=== PATIENT | female | born 1935 | race Caucasian/White ===

== ENCOUNTER 2019-05-01 04:37 | Emergency (ER) | payer OTHER ==
[2019-05-01] MEDS ORDERED: ALBUTEROL 2.5 MG/3 ML NEB SOL ONE (05:31)
[2019-05-01] MEDS ORDERED: IPRATROPIUM BROM 0.5MG/2.5ML ONE (05:31)
[2019-05-01] MEDS ORDERED: ACETAMINOPHEN 500 MG TAB ONE (05:31)
--- NOTE | 2019-05-01 06:49 | ER ---
Nurse's Notes [facility] Name: Ritika Madrigal Age: 83 yrs Sex: Female : 1935 Arrival Date: 05/01/2019 Time: 04:58 Bed 8 Private MD: Diagnosis: left metacapal base fracture;cough Presentation: 05/01 05:09 Presenting complaint: EMS states: they were called by [place] staff stating that they had aa1 received a radiology report that indicated pt had a fx to her L ring finger. Reports pt sustained the injury while being transferred from her chair to the bed 3 days prior. Minor bruising noted to L ring finger. CMS intact. Transition of care: patient was received from another setting of care (long-term care facility), [facility]. Onset of symptoms was April 27, 2019. Risk Assessment: Do you want to hurt yourself or someone else? Patient reports no desire to harm self or others. Initial Sepsis Screen: Does the patient meet any 2 criteria? No. Patient's initial sepsis screen is negative. Does the patient have a suspected source of infection? No. Patient's initial sepsis screen is negative. Care prior to arrival: None. 05:09 Method Of Arrival: EMS: [facility] aa1 05:09 Acuity: SOURAV 4 aa1 Historical: - Allergies: 05:54 Iodine; aa1 05:54 Bactrim; aa1 - Home Meds: 05:54 albuterol sulfate 0.63 mg/3 mL Inhl nebu every 6 hours [Active]; Aricept 5 mg Oral tab aa1 1 tab once daily [Active]; aspirin 81 mg Oral TbEC 1 tab once daily [Active]; baclofen 10 mg Oral tab 0.5 tabs twice a day [Active]; Breo Ellipta 100-25 mcg/dose inhalation dsdv 1 puff once daily [Active]; chlorthalidone 25 mg Oral tab 0.5 tab once daily [Active]; Flonase 50 mcg/actuation Nasal spsn 2 sprays 2 times per day [Active]; Lamisil AT 1 % topical crea 2 times per day [Active]; levothyroxine 175 mcg tab 1 tab once daily [Active]; Lexapro 10 mg Oral tab 1 tab once daily [Active]; loratadine 10 mg oral tab 1 tab once daily [Active]; Namenda 10 mg oral tab 1 tab 2 times per day [Active]; Neurontin 100 mg Oral cap nightly [Active]; [place] 10-325 mg Oral tab three times a day [Active]; prednisone 20 mg Oral tab 1 tab 2 times per day [Active]; Questran 4 gram Oral pwpk 1 packet 2 times per day [Active]; Remeron 15 mg Oral tab 1 tab once daily [Active]; cholecalciferol (vitamin D3) 2,000 unit oral tab daily [Active]; - PMHx: 05:54 Pneumonia; Chronic pain; Dementia; aa1 05:56 chronic bronchitis; Anemia; Renal Disease; Depression; neuropathy; Osteoporosis; COPD; aa1 Hypothyroidism; Hypertension; Anxiety; - Immunization history:: Flu vaccine is up to date. - Social history:: Smoking status: Patient/guardian denies using tobacco. - Ebola Screening: : No symptoms or risks identified at this time. - History obtained from: [place] records. Screenin:15 Abuse screen: Denies threats or abuse. Denies injuries from another. Nutritional aa1 screening: No deficits noted. Tuberculosis screening: No symptoms or risk factors identified. Fall Risk None identified. Assessment: 05:15 General: Appears in no apparent distress. comfortable, Behavior is calm, cooperative, aa1 appropriate for age. Pain: Complains of pain in left ring finger Pain currently is 0 out of 10 on a pain scale. at worst was 6 out of 10 on a pain scale. Pain began 2-3 days ago. Is intermittent. Neuro: Level of Consciousness is awake, alert, obeys commands, Oriented to person, place, situation, Moves all extremities. Respiratory: Airway is patent Respiratory effort is even, unlabored, Respiratory pattern is regular, symmetrical. GI: No signs and/or symptoms were reported involving the gastrointestinal system. : No signs and/or symptoms were reported regarding the genitourinary system. EENT: No signs and/or symptoms were reported regarding the EENT system. Derm: Skin is intact, is healthy with good turgor, is thin, Skin is pink, warm \T\ dry. Musculoskeletal: Circulation, motion, and sensation intact. Capillary refill < 3 seconds. 06:08 Reassessment: Patient appears in no apparent distress at this time. No changes from aa1 previously documented assessment. Patient and/or family updated on plan of care and expected duration. Pain level reassessed. Awaiting test results. 07:22 Reassessment: Patient appears in no apparent distress at this time. Patient and/or ph family updated on plan of care and expected duration. Pain level reassessed. Report called to nurse at [facility], nurse states that they will send transport for pt. 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 09:38 Reassessment: Patient appears in no apparent distress at this time. Patient and/or ph family updated on plan of care and expected duration. Pain level reassessed. Patient is alert, oriented x 3, equal unlabored respirations, skin warm/dry/pink. Pt cleaned of incontinence and placed in clean brief, snf staff at bedside, pt assisted into wheelchair and d/c to snf. Vital Signs: 05:09 BP 158 / 76; Pulse 76; Resp 18; Temp 98.4; Pulse Ox 97% on R/A; Weight 90.72 kg (R); aa1 Height 5 ft. 6 in. (167.64 cm) (R); Pain 0/10; 06:08 BP 180 / 75; Pulse 88; Resp 24; Pulse Ox 95% on R/A; Pain 0/10; aa1 07:24 BP 163 / 72; Pulse 84; Resp 18; Temp 97.8; Pulse Ox 97% on R/A; ph 08:30 BP 167 / 70; Pulse 86; Resp 18; Pulse Ox 96% on R/A; ph 05:09 Body Mass Index 32.28 (90.72 kg, 167.64 cm) aa1 ED Course: 04:58 Patient arrived in ED. ds1 05:01 Luis Dewey MD is Attending Physician. wa 05:07 Azeb Sandoval, SOHAM is Primary Nurse. aa1 05:09 Arm band placed on right wrist. Patient placed in an exam room, on a stretcher. aa1 05:13 Triage completed. aa1 05:15 Patient has correct armband on for positive identification. Bed in low position. Call aa1 light in reach. Side rails up X2. Pulse ox on. NIBP on. Warm blanket given. 05:38 Flu Sent. aa1 06:46 Christo Chicas MD is Referral Physician. wa 07:05 Orthoglass splint: Ulnar gutter/Boxer splint applied on left forearm. oe 07:14 Sling applied to left arm. oe 07:29 No provider procedures requiring assistance completed. Patient did not have IV access ph during this emergency room visit. Administered Medications: 05:38 Drug: Albuterol - atroVENT (3:1) (2.5 mg - 0.5 mg) 3 ml Route: Nebulizer; aa1 07:29 Follow up: Response: No adverse reaction ph 05:38 CANCELLED (Other Intervention Used): Tylenol Liquid 10 mg/kg PO once; not to exceed aa1 1,000 milligrams 05:38 Drug: Tylenol 1000 mg Route: PO; aa1 07:29 Follow up: Response: No adverse reaction ph Outcome: 06:48 Discharge ordered by . wa 09:15 Discharged to snf. ph 09:15 Condition: good 09:15 Discharge instructions given to snf, Instructed on follow up and referral plans. medication usage, Demonstrated understanding of instructions, follow-up care, medications, Prescriptions given X 1. 09:39 Patient left the ED. ph Signatures: Azeb Sandoval RN RN aa1 Kat Camargo ds1 Zena Carranza RN RN Faizan Andrew William, MD MD pr Corrections: (The following items were deleted from the chart) 05:20 05:09 Presenting complaint: EMS states: they were called by [place] staff stating that they aa1 had received a radiology report that indicated pt had a fx to her L middle finger. Reports pt sustained the injury while being transferred from her chair to the bed 3 days prior. Minor bruising noted to L middle finger. CMS intact aa1
--- NOTE | 2019-05-01 06:49 | EDPHYS ---
Physician Documentation [facility] Name: Ritika Madrigal Age: 83 yrs Sex: Female : 1935 Arrival Date: 05/01/2019 Time: 04:58 Bed 8 Private MD: ED Physician Luis Dewey HPI: 05/01 06:38 This 83 yrs old Female presents to ER via EMS with complaints of left mid wa finget injury. 06:38 The patient or guardian reports injury, pain, swelling, tenderness. The complaints wa affect the MCP of left middle finger. Context: The problem was sustained at a long-term or assisted living facility, resulted from finger got caught into wheelchair during transfer. Onset: The symptoms/episode began/occurred 2 day(s) ago. Modifying factors: The symptoms are alleviated by nothing, the symptoms are aggravated by movement, touch. Associated signs and symptoms: Pertinent negatives: cyanosis distally, decreased sensation distally, fever, nausea, numbness distally. Severity of symptoms: At their worst the symptoms were moderate, in the emergency department the symptoms are unchanged. 06:51 The patient has not experienced similar symptoms in the past. The patient has not wa recently seen a physician. Historical: - Allergies: 05:54 Iodine; aa1 05:54 Bactrim; aa1 - Home Meds: 05:54 albuterol sulfate 0.63 mg/3 mL Inhl nebu every 6 hours [Active]; Aricept 5 mg Oral tab aa1 1 tab once daily [Active]; aspirin 81 mg Oral TbEC 1 tab once daily [Active]; baclofen 10 mg Oral tab 0.5 tabs twice a day [Active]; Breo Ellipta 100-25 mcg/dose inhalation dsdv 1 puff once daily [Active]; chlorthalidone 25 mg Oral tab 0.5 tab once daily [Active]; Flonase 50 mcg/actuation Nasal spsn 2 sprays 2 times per day [Active]; Lamisil AT 1 % topical crea 2 times per day [Active]; levothyroxine 175 mcg tab 1 tab once daily [Active]; Lexapro 10 mg Oral tab 1 tab once daily [Active]; loratadine 10 mg oral tab 1 tab once daily [Active]; Namenda 10 mg oral tab 1 tab 2 times per day [Active]; Neurontin 100 mg Oral cap nightly [Active]; [place] 10-325 mg Oral tab three times a day [Active]; prednisone 20 mg Oral tab 1 tab 2 times per day [Active]; Questran 4 gram Oral pwpk 1 packet 2 times per day [Active]; Remeron 15 mg Oral tab 1 tab once daily [Active]; cholecalciferol (vitamin D3) 2,000 unit oral tab daily [Active]; - PMHx: 05:54 Pneumonia; Chronic pain; Dementia; aa1 05:56 chronic bronchitis; Anemia; Renal Disease; Depression; neuropathy; Osteoporosis; COPD; aa1 Hypothyroidism; Hypertension; Anxiety; - Immunization history:: Flu vaccine is up to date. - Social history:: Smoking status: Patient/guardian denies using tobacco. - Ebola Screening: : No symptoms or risks identified at this time. - History obtained from: [place] records. ROS: 06:41 Constitutional: Negative for fever, chills, and weight loss, Eyes: Negative for injury, wa pain, redness, and discharge, ENT: Negative for injury, pain, and discharge, Neck: Negative for injury, pain, and swelling, Cardiovascular: Negative for chest pain, palpitations, and edema, Abdomen/GI: Negative for abdominal pain, nausea, vomiting, diarrhea, and constipation, Back: Negative for injury and pain, : Negative for injury, bleeding, discharge, and swelling, Skin: Negative for injury, rash, and discoloration, Neuro: Negative for headache, weakness, numbness, tingling, and seizure, Psych: Negative for depression, anxiety, suicide ideation, homicidal ideation, and hallucinations. 06:41 Respiratory: Positive for cough. 06:41 MS/extremity: Positive for ecchymosis, pain, swelling, tenderness, of the left hand and MCP of left middle finger. 06:41 All other systems are negative. Exam: 06:42 Constitutional: This is a well developed, well nourished patient who is awake, alert, wa and in no acute distress. Head/Face: Normocephalic, atraumatic. Eyes: Pupils equal round and reactive to light, extra-ocular motions intact. Lids and lashes normal. Conjunctiva and sclera are non-icteric and not injected. Cornea within normal limits. Periorbital areas with no swelling, redness, or edema. ENT: Nares patent. No nasal discharge, no septal abnormalities noted. Tympanic membranes are normal and external auditory canals are clear. Oropharynx with no redness, swelling, or masses, exudates, or evidence of obstruction, uvula midline. Mucous membranes moist. Neck: Trachea midline, no thyromegaly or masses palpated, and no cervical lymphadenopathy. Supple, full range of motion without nuchal rigidity, or vertebral point tenderness. No Meningismus. Chest/axilla: Normal chest wall appearance and motion. Nontender with no deformity. No lesions are appreciated. Cardiovascular: Regular rate and rhythm with a normal S1 and S2. No gallops, murmurs, or rubs. Normal PMI, no JVD. No pulse deficits. Abdomen/GI: Soft, non-tender, with normal bowel sounds. No distension or tympany. No guarding or rebound. No evidence of tenderness throughout. Back: No spinal tenderness. No costovertebral tenderness. Full range of motion. Neuro: Awake and alert, GCS 15, oriented to person, place, time, and situation. Cranial nerves II-XII grossly intact. Motor strength 5/5 in all extremities. Sensory grossly intact. Cerebellar exam normal. Normal gait. Psych: Awake, alert, with orientation to person, place and time. Behavior, mood, and affect are within normal limits. 06:42 Respiratory: the patient does not display signs of respiratory distress, Respirations: normal, Breath sounds: coarse bilaterally. 06:42 Musculoskeletal/extremity: Extremities: grossly normal except: noted in the MCP of left middle finger: pain, swelling, tenderness, erythema, pain, swelling. 06:42 Skin: injury, contusion(s), of the MCP of left middle finger. Vital Signs: 05:09 BP 158 / 76; Pulse 76; Resp 18; Temp 98.4; Pulse Ox 97% on R/A; Weight 90.72 kg (R); aa1 Height 5 ft. 6 in. (167.64 cm) (R); Pain 0/10; 06:08 BP 180 / 75; Pulse 88; Resp 24; Pulse Ox 95% on R/A; Pain 0/10; aa1 07:24 BP 163 / 72; Pulse 84; Resp 18; Temp 97.8; Pulse Ox 97% on R/A; ph 08:30 BP 167 / 70; Pulse 86; Resp 18; Pulse Ox 96% on R/A; ph 05:09 Body Mass Index 32.28 (90.72 kg, 167.64 cm) aa1 Procedures: 06:45 Splinting: Splint applied to left hand using Orthoglass splint, applied by nurse. wa Examined by me, post splint application: neurovascular intact, Patient tolerated well. MDM: 05:01 Patient medically screened. ks 06:43 Differential diagnosis: dislocation, closed fracture, contusion. Data reviewed: vital wa signs, nurses notes, radiologic studies. Test interpretation: by ED physician or midlevel provider: L hand x-ray: metacarpal base fracture L hand. Response to treatment: the patient's symptoms have markedly improved after treatment. 05/01 05:20 Order name: Flu ks 05/01 06:12 Order name: Influenza Screen (A ; Complete Time: 06:30 [facility] 05/01 05:17 Order name: Hand Left 3 View XRAY ks 05/01 05:20 Order name: Chest Pa And Lat (2 Views) XRAY ks 05/01 09:26 Order name: RAD [facility] 05/01 09:39 Order name: RAD [facility] 05/01 06:32 Order name: Splint: L hand; Complete Time: 07:29 ks 05/01 07:29 Order name: Diet Mech. Soft (ground); Complete Time: 07:31 ph Administered Medications: 05:38 Drug: Albuterol - atroVENT (3:1) (2.5 mg - 0.5 mg) 3 ml Route: Nebulizer; aa1 07:29 Follow up: Response: No adverse reaction ph 05:38 CANCELLED (Other Intervention Used): Tylenol Liquid 10 mg/kg PO once; not to exceed aa1 1,000 milligrams 05:38 Drug: Tylenol 1000 mg Route: PO; aa1 07:29 Follow up: Response: No adverse reaction ph Disposition: 05/01/19 06:48 Discharged to Home. Impression: left metacapal base fracture, cough. - Condition is Stable. - Discharge Instructions: Finger Fracture, [id number], Cough, Adult, [id number]. - Prescriptions for Albuterol Sulfate 2.5 mg /3 mL (0.083 %) Inhalation Solution for Nebulization - inhale 1 unit by NEBULIZATION route every 8 hours As needed; 1 box. - Medication Reconciliation Form, Thank You Letter, Antibiotic Education, Prescription Opioid Use form. - Follow up: Christo Chicas MD; When: 2 - 3 days; Reason: Recheck today's complaints. - Problem is new. - Symptoms have improved. - Notes: take tylenol for pain. follow up with the bone doctor for further assessent Signatures: Dispatcher [employer] EDAzeb Jacobs RN RN aa1 Zena Carranza RN RN [facility] Hospital[facility] MD MD ks Corrections: (The following items were deleted from the chart) 05:38 05:21 Tylenol Liquid 10 mg/kg PO once; not to exceed 1,000 milligrams ordered. ks aa1 09:39 06:48 05/01/2019 06:48 Discharged to Home. Impression: left metacapal base fracture; ph cough. Condition is Stable. Forms are Medication Reconciliation Form, Thank You Letter, Antibiotic Education, Prescription Opioid Use. Follow up: Christo Chicas; When: 2 - 3 days; Reason: Recheck today's complaints. Problem is new. Symptoms have improved. [place]
--- NOTE | 2019-05-01 09:19 | RAD REPORT ---
EXAM DESCRIPTION: RAD - Chest Single View - 05/01/2019 5:58 am CLINICAL HISTORY: Cough, shortness of breath COMPARISON: February 2014 TECHNIQUE: AP portable chest image was obtained 0545 hour . FINDINGS: Is lung volumes are low particularly on the right side. Patient has a baseline interstitia l fibrotic pattern that is accentuated by the poor inspiratory effort. This could mask early intersti tial edema or infiltrate. No focal consolidations seen. Heart size is normal. No vascular engorgement seen. Right hilar fullness is believed to be the affects of shallow inspiration. This can be further evaluated when the patient can tolerate a two-view examination. No measurable pleural effusion and no pneumothorax. No acute bone finding identifiable. Prominent de generative changes are present at the left shoulder joint. There is probable joint laxity or partial dislocation of the humeral head. This is unchanged from the 2014 exam. No acute aortic findings suspe cted. IMPRESSION: Chronic interstitial fibrotic pattern accentuated by shallow inspiration. This could mas k early interstitial edema or infiltrate. Fullness of the right hilum is believed to be artifact of shallow inspiration. This can be re-evaluat ed when the patient can tolerate standard two view examination.
--- NOTE | 2019-05-01 09:22 | RAD REPORT ---
EXAM DESCRIPTION: RAD - Hand Left 3 View - 05/01/2019 5:50 am CLINICAL HISTORY: Hand pain, bruising COMPARISON: None. FINDINGS: Nondisplaced, nonangulated fracture involves the base of the third proximal phalanx. Fract ure line is at the base of the shaft. Articular surface of the third proximal phalanx is intact. No p athologic component. No other acute fracture changes confirmed. Bones are osteopenic. IP joint space narrowing is present. Carpal - metacarpal articulation show degenerative change. Positioning is not optimal. Metacarpal di slocation is not suspected. Trapezial first metacarpal prominent degenerative changes are noted. Radi ocarpal joint space narrowing seen. No foreign body or other soft tissue abnormality. IMPRESSION: Nondisplaced, nonangulated fracture of the third proximal phalanx as detailed.
[2019-05-01 09:47] VITALS: TEMP 97.8
[2019-05-01 09:48] VITALS: BP 167/70; O2SAT 96
== END 2019-05-01 09:39 | disposition home or self-care (01) ==
LOC: ER 04:37
PROC: 2W3DX1Z Immobilization of Left Lower Arm using Splint (ICD-10-PCS; principal; 2019-05-01)
DX: S62.343A Nondisplaced fracture of base of third metacarpal bone, left hand, initial encounter for closed fracture (principal); R05 Cough; X58.XXXA Exposure to other specified factors, initial encounter; Y93.9 Activity, unspecified; Y92.129 Unspecified place in nursing home as the place of occurrence of the external cause; Z79.82 Long term (current) use of aspirin; Z88.1 Allergy status to other antibiotic agents; Z91.048 Other nonmedicinal substance allergy status; I12.9 Hypertensive chronic kidney disease with stage 1 through stage 4 chronic kidney disease, or unspecified chronic kidney disease; N18.9 Chronic kidney disease, unspecified; E03.9 Hypothyroidism, unspecified; F41.9 Anxiety disorder, unspecified; J44.9 Chronic obstructive pulmonary disease, unspecified; F03.90 Unspecified dementia, unspecified severity, without behavioral disturbance, psychotic disturbance, mood disturbance, and anxiety
CPT/HCPCS: 71045; 87804; 94640; 99284

== ENCOUNTER 2019-05-18 13:07 | Emergency (ER) | payer OTHER ==
--- NOTE | 2019-05-18 13:51 | ER ---
Nurse's Notes [facility] Name: Ritika Madrigal Age: 84 yrs Sex: Female : 1935 Arrival Date: 05/18/2019 Time: 13:09 Bed 19 Private MD: Diagnosis: Chronic dislocation of left shoulder Presentation: 05/18 13:19 Presenting complaint: She had a chest x ray for congestion recently but they saw that la1 her left shoulder was dislocated, they sent her here for further evaluation. Transition of care: patient was not received from another setting of care. Onset of symptoms was May 18, 2019. Risk Assessment: Do you want to hurt yourself or someone else? Patient reports no desire to harm self or others. Initial Sepsis Screen: Does the patient meet any 2 criteria? No. Patient's initial sepsis screen is negative. Does the patient have a suspected source of infection? No. Patient's initial sepsis screen is negative. Care prior to arrival: None. 13:19 Method Of Arrival: Wheelchair la1 13:19 Acuity: SOURAV 4 la1 Triage Assessment: 14:08 General: Appears in no apparent distress. Behavior is calm, cooperative. iw Historical: - Allergies: 13:19 Bactrim; la1 13:19 Iodine; la1 - PMHx: 13:19 Anemia; Anxiety; chronic bronchitis; Chronic pain; COPD; Dementia; Depression; la1 Hypertension; Hypothyroidism; neuropathy; Osteoporosis; Pneumonia; Renal Disease; - Immunization history:: Adult Immunizations up to date. - Social history:: Smoking status: Patient/guardian denies using tobacco. - Ebola Screening: : No symptoms or risks identified at this time. Screenin:08 Abuse screen: Denies threats or abuse. Denies injuries from another. Nutritional iw screening: No deficits noted. Tuberculosis screening: No symptoms or risk factors identified. Fall Risk None identified. Assessment: 13:53 Reassessment: Dr. Baca at bedside to discuss POC and dispo with patient, pt states iw she has had dislocation to left shoulder for 30 years, she does not wish to have any further intervention or surgery on shoulder, pt denies need for xray. Vital Signs: 13:20 BP 135 / 80; Pulse 67; Resp 16; Temp 98.2; Pulse Ox 100% on R/A; la1 ED Course: 13:09 Patient arrived in ED. mr 13:15 Godwin Baca MD is Attending Physician. ps1 13:18 Arm band placed on right wrist. la1 13:20 Triage completed. la1 13:22 Zena Carranza, RN is Primary Nurse. ph 14:08 Patient has correct armband on for positive identification. iw 14:08 No provider procedures requiring assistance completed. Patient did not have IV access iw during this emergency room visit. Administered Medications: No medications were administered Outcome: 13:50 Discharge ordered by . ps1 14:07 Discharged to correction. 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 Demonstrated understanding of instructions, follow-up care. 14:08 Patient left the ED. iw 15:08 Discharge instructions given to faxed physician notes and nurse's notes to [facility] Signatures: Shakila Sebastian Nighat Henry, SOHAM ROUSSEAU Dami Brand, RN RN [facility] Zena Carranza, SOHAM RN Godwin aBca MD MD ps1
--- NOTE | 2019-05-18 13:51 | EDPHYS ---
Physician Documentation [facility] Name: Ritika Madrigal Age: 84 yrs Sex: Female : 1935 Arrival Date: 05/18/2019 Time: 13:09 Bed 19 Private MD: ED Physician Godwin Baca HPI: 05/18 13:45 This 84 yrs old Female presents to ER via Wheelchair with complaints of ps1 Shoulder Pain. 13:45 patient has a known left shoulder dislocation for 30 years. No intent to have surgery. ps1 Not in pain at this time. Sent for evaluation of left shoulder dislocation that was seen on CXR. . Historical: - Allergies: 13:19 Bactrim; la1 13:19 Iodine; la1 - PMHx: 13:19 Anemia; Anxiety; chronic bronchitis; Chronic pain; COPD; Dementia; Depression; la1 Hypertension; Hypothyroidism; neuropathy; Osteoporosis; Pneumonia; Renal Disease; - Immunization history:: Adult Immunizations up to date. - Social history:: Smoking status: Patient/guardian denies using tobacco. - Ebola Screening: : No symptoms or risks identified at this time. ROS: 13:45 Constitutional: Negative for fever, chills, and weight loss, Eyes: Negative for injury, ps1 pain, redness, and discharge, Cardiovascular: Negative for chest pain, palpitations, and edema, Respiratory: Negative for shortness of breath, cough, wheezing, and pleuritic chest pain, Abdomen/GI: Negative for abdominal pain, nausea, vomiting, diarrhea, and constipation. 13:45 MS/extremity: Positive for decreased ROM, Negative for pain. Exam: 13:45 Constitutional: This is a well developed, well nourished patient who is awake, alert, ps1 and in no acute distress. Head/Face: Normocephalic, atraumatic. Eyes: Pupils equal round and reactive to light, extra-ocular motions intact. Lids and lashes normal. Conjunctiva and sclera are non-icteric and not injected. Cardiovascular: Regular rate and rhythm. No gallops, murmurs, or rubs. Normal PMI, no JVD. No pulse deficits. Respiratory: Lungs have equal breath sounds bilaterally, clear to auscultation and percussion. No rales, rhonchi or wheezes noted. No increased work of breathing, no retractions or nasal flaring. 13:45 Musculoskeletal/extremity: Extremities: arthritic changes in hands. Left shoulder has flattening of humeral head likely 2/2 dislocation. Not in pain at this time. General atrophy from being in wheelchair. Vital Signs: 13:20 BP 135 / 80; Pulse 67; Resp 16; Temp 98.2; Pulse Ox 100% on R/A; la1 MDM: 13:45 Data reviewed: vital signs, nurses notes, and as a result, I will discharge patient. ps1 Counseling: I had a detailed discussion with the patient and/or guardian regarding: the historical points, exam findings, and any diagnostic results supporting the discharge/admit diagnosis. ED course: No intent to perform surgery. No reduction attempt indicated as it is a chronic injury. No necessity to image. . 13:50 Patient medically screened. ps1 Administered Medications: No medications were administered Disposition: 05/18/19 13:50 Discharged to Home. Impression: Chronic dislocation of left shoulder. - Condition is Stable. - Discharge Instructions: Shoulder Dislocation. - Medication Reconciliation Form, Thank You Letter, Antibiotic Education, Prescription Opioid Use form. - Follow up: Private Physician; When: As needed; Reason: Recheck today's complaints, Continuance of care, Re-evaluation by your physician. Follow up: Emergency Department; When: As needed; Reason: Worsening of condition. - Problem is chronic. - Symptoms are unchanged. Signatures: Nighat Henry RN RN iw Dami Brand RN RN la1 Godwin Baca MD MD ps1 Corrections: (The following items were deleted from the chart) 14:08 13:50 05/18/2019 13:50 Discharged to Home. Impression: Chronic dislocation of left iw shoulder. Condition is Stable. Forms are Medication Reconciliation Form, Thank You Letter, Antibiotic Education, Prescription Opioid Use. Follow up: Private Physician; When: As needed; Reason: Recheck today's complaints, Continuance of care, Re-evaluation by your physician. Follow up: Emergency Department; When: As needed; Reason: Worsening of condition. Problem is chronic. Symptoms are unchanged. ps1
[2019-05-18 14:14] VITALS: BP 135/80; TEMP 98.2; O2SAT 100
== END 2019-05-18 14:08 | disposition home or self-care (01) ==
LOC: ER 13:07
DX: M24.412 Recurrent dislocation, left shoulder (principal); Z88.1 Allergy status to other antibiotic agents; Z91.09 Other allergy status, other than to drugs and biological substances
CPT/HCPCS: 99281

== ENCOUNTER 2020-08-22 10:20 | Inpatient (IN) | payer OTHER ==
--- OUTSIDE RECORDS SUMMARY | 2020-08-22 10:22 | XMS REPORT | Continuity of Care Document ---
:1935 Author Organization [facility] t Address [address] [place] [address] Care Team Providers Name Role Phone Doctor Unassigned, Name Attending Clinician Unavailable Chintan PERKINS L Attending Clinician Problems This patient has no known problems. Allergies, Adverse Reactions, Alerts This patient has no known allergies or adverse reactions. Medications This patient has no known medications. Procedures This patient has no known procedures. Encounters Start End Encounter Admission Attending Care Care Encounter Source Date/Time Date/Time Type Type Clinicians Facility Department ID 2020-05-15 2020-05-15 Orders Doctor ABDIEL [id number] 00:00:00 00:00:00 Only Unassigned, DAILY [id number] [place] [facility] [id number] 2019-06-21 2019-06-21 Office LEANNE Woodson [id number] 15:45:52 16:00:52 Visit [facility] [id number] Surgical [id number] Specialti [id number] [place] Results This patient has no known results.
[2020-08-22] MEDS ORDERED: IPRATROPIUM BROM 0.5MG/2.5ML ONE (11:06)
[2020-08-22] MEDS ORDERED: LEVALBUTEROL 1.25 MG/3 ML NEB ONE (11:06)
[2020-08-22 11:18] LABS: Protime INR 1.03
[2020-08-22 11:29] LABS: ALT/SGPT 34 U/L (12-78); AST/SGOT 30 U/L (15-37); Albumin 3.4 g/dL (3.4-5.0); Alkaline Phosphatase 103 U/L (45-117); BUN Blood Urea Nitrogen 35 mg/dL (7-18); Bicarbonate 27 mmol/L (21-32); Bilirubin Direct 0.1 mg/dL (0-0.2); Bilirubin Total 0.4 mg/dL (0.2-1.0); Glucose Level 114 mg/dL (74-106); Magnesium 2.2 mg/dL (1.8-2.4); NT PRO-BNP 310 pg/mL (<450); Potassium 4.3 mmol/L (3.5-5.1); Protein, Total 8.4 g/dL (6.4-8.2); Sodium Level 144 mmol/L (136-145); Troponin (Emerg Dept Use Only) < 0.02 ng/mL (0.0-0.045)
[2020-08-22 11:52] LABS: Absolute Lymphocytes (CBC) 1.5 K/uL (0.7-4.9); Basophils % 0.7 % (0-1.3); Hematocrit 36.7 % (36.0-45.0); Lymphocytes % 12.9 % (15.3-44.8); MPV 8.8 fL (7.6-11.3); RBC Red Blood Cell Count 4.04 M/uL (3.86-4.86)
--- NOTE | 2020-08-22 12:24 | RAD REPORT ---
EXAM DESCRIPTION: Raphael Single View08/22/2020 12:13 pm CLINICAL HISTORY: Cough COMPARISON: 2019 FINDINGS: Mild right upper lobe opacity equivocal for a mild infiltrate. Left lung appears clear. Heart is normal size
--- NOTE | 2020-08-22 13:31 | ER ---
Nurse's Notes [facility] Name: Ritika Madrigal Age: 85 yrs Sex: Female : 1935 Arrival Date: 08/22/2020 Time: 10:25 Bed 17 Private MD: Diagnosis: Pneumonia, unspecified organism Presentation: 08/22 10:26 Chief complaint: EMS states: PRISON STAFF STATED PT LETHARGIC AND HYPOXIC. bp Coronavirus screen: Client presents with at least one sign or symptom that may indicate coronavirus-19. Standard/surgical mask placed on the client. Ebola Screen: No symptoms or risks identified at this time. Initial Sepsis Screen: Does the patient meet any 2 criteria? No. Patient's initial sepsis screen is negative. Does the patient have a suspected source of infection? No. Patient's initial sepsis screen is negative. Risk Assessment: Do you want to hurt yourself or someone else? Patient reports no desire to harm self or others. Onset of symptoms is unknown. Care prior to arrival: Glucose check: 186. 10:26 Method Of Arrival: EMS: [facility] bp 10:26 Acuity: SOURAV 3 bp Triage Assessment: 10:33 General: Appears in no apparent distress. comfortable, Behavior is cooperative, bp anxious. Pain: Denies pain. EENT: No deficits noted. Neuro: Oriented to person, place, situation. Cardiovascular: Rhythm is sinus rhythm. Respiratory: Reports shortness of breath Onset: The symptoms/episode began/occurred at an unknown time. the patient has mild shortness of breath. GI: No signs and/or symptoms were reported involving the gastrointestinal system. : No signs and/or symptoms were reported regarding the genitourinary system. Derm: No deficits noted. Historical: - Allergies: 10:33 Bactrim; bp 10:33 Iodine; bp - PMHx: 10:33 CVA; Anemia; Anxiety; chronic bronchitis; Chronic pain; COPD; Dementia; Depression; bp Hypertension; Hypothyroidism; neuropathy; Osteoporosis; Pneumonia; Renal Disease; - Immunization history:: Adult Immunizations up to date. - Social history:: Smoking status: unknown. Screenin:30 Abuse screen: Denies threats or abuse. Denies injuries from another. Nutritional bp screening: No deficits noted. Tuberculosis screening: No symptoms or risk factors identified. Fall Risk None identified. Assessment: 10:30 General: SEE TRIAGE NOTE. bp 12:00 Reassessment: No changes from previously documented assessment. Patient and/or family bp updated on plan of care and expected duration. Pain level reassessed. Cardiovascular: Rhythm is sinus tachycardia. Respiratory: Airway is patent Respiratory effort is labored, Breath sounds are clear bilaterally. 14:00 Reassessment: No changes from previously documented assessment. Patient and/or family bp updated on plan of care and expected duration. Pain level reassessed. ADMIT IN PROCESS. 15:00 Reassessment: No changes from previously documented assessment. Patient and/or family bp updated on plan of care and expected duration. Pain level reassessed. ADMIT IN PROCESS. 16:00 Reassessment: No changes from previously documented assessment. Patient and/or family bp updated on plan of care and expected duration. Pain level reassessed. ADMIT IN PROCESS. Vital Signs: 10:26 BP 136 / 56; Pulse 75; Resp 19; Temp 97.8; Pulse Ox 94% on 4 lpm NC; bp 11:06 BP 118 / 74; Pulse 80; Resp 20; Pulse Ox 100% on Nebulizer Mask; mh5 12:19 BP 124 / 93; Pulse 118; Resp 26; Pulse Ox 91% on 4 lpm NC; mh5 13:30 BP 142 / 60; Pulse 96; Resp 24; Pulse Ox 96% ; bp 14:30 BP 119 / 59; Pulse 94; Resp 24; Pulse Ox 97% ; bp 15:30 BP 101 / 48; Pulse 90; Resp 21; Pulse Ox 95% ; bp 16:29 BP 96 / 52; Pulse 90; Resp 21; Pulse Ox 96% on 2 lpm NC; bp ED Course: 10:25 Patient arrived in ED. bp 10:26 Michelle Pearl FNP-C is PHCP. kb 10:26 Chapo Richardson MD is Attending Physician. kb 10:30 Triage completed. bp 10:30 Patient has correct armband on for positive identification. Bed in low position. Call bp light in reach. Side rails up X2. Adult w/ patient. 10:33 Arm band placed on. bp 10:40 David Lerner, RN is Primary Nurse. bp 11:00 Inserted saline lock: 22 gauge in right forearm, using aseptic technique. Blood bp collected. 11:06 Warm blanket given. nuclear monitoring technician on. Pulse ox on. NIBP on. [facility] 11:06 Initial lab(s) drawn, by ED staff, sent to lab. EKG done, COVID swab sent to lab. [facility] 12:13 XRAY Chest (1 view) In Process Unspecified. EDMS 13:31 Page Romeroand is Hospitalizing Provider. kb 16:29 No provider procedures requiring assistance completed. Patient admitted, IV remains in bp place. Administered Medications: 10:45 Drug: AtroVENT Aerosol 0.5 mg Route: Inhalation; bp 10:45 Drug: Xopenex 1.25 mg Route: Inhalation; bp 15:06 Drug: Rocephin 1 grams Route: IV; Rate: calculated rate; Site: right forearm; bp 15:44 Follow up: IV Status: Completed infusion; IV Intake: 100ml bp 15:15 Drug: Zithromax 500 mg Route: IVPB; Infused Over: 1 hrs; Site: right forearm; bp Intake: 15:44 IV: 100ml; Total: 100ml. bp Outcome: 13:31 Decision to Hospitalize by Provider. kb 16:29 Admitted to Med/surg accompanied by tech, via stretcher, room 210, with chart, Report bp called to ESTEFANY ROUSSEAU 16:29 Condition: stable 16:29 Instructed on the need for admit. 16:57 Patient left the ED. bp Signatures: Dispatcher [employer] EDMS Michelle Pearl, CARTRIDGE LOADER-C CARTRIDGE LOADER-Cora Schrader [facility] David Lerner, RN RN bp Corrections: (The following items were deleted from the chart) 11:33 11:05 CORONAVIRUS+MR.LAB.ROBERT drawn and sent. [facility] EDMA
--- NOTE | 2020-08-22 13:31 | EDPHYS ---
Physician Documentation [facility] Name: Ritika Madrigal Age: 85 yrs Sex: Female : 1935 Arrival Date: 08/22/2020 Time: 10:25 Bed 17 Private MD: ED Physician Chapo Richardson HPI: 08/22 10:27 This 85 yrs old Female presents to ER via Unassigned with complaints of kb Shortness Of Breath. 10:27 The patient has shortness of breath at rest. Onset: The symptoms/episode began/occurred kb this morning. Duration: The symptoms are continuous. The patient's shortness of breath is aggravated by nothing, is alleviated by application of supplemental oxygen. Associated signs and symptoms: The patient has no apparent associated signs or symptoms. Severity of symptoms: At their worst the symptoms were moderate in the emergency department the symptoms are unchanged. The patient has not experienced similar symptoms in the past. The patient has not recently seen a physician. senior care staff reports pt started having trouble breathing this morning. . Historical: - Allergies: 10:33 Bactrim; bp 10:33 Iodine; bp - PMHx: 10:33 CVA; Anemia; Anxiety; chronic bronchitis; Chronic pain; COPD; Dementia; Depression; bp Hypertension; Hypothyroidism; neuropathy; Osteoporosis; Pneumonia; Renal Disease; - Immunization history:: Adult Immunizations up to date. - Social history:: Smoking status: unknown. ROS: 14:52 Respiratory: Positive for cough, shortness of breath. kb 14:53 Constitutional: Negative for fever, chills, and weight loss. kb 14:53 Unable to obtain ROS due to baseline dementia. kb Exam: 14:54 Head/Face: Normocephalic, atraumatic. Chest/axilla: Normal chest wall appearance and kb motion. Nontender with no deformity. No lesions are appreciated. Cardiovascular: Regular rate and rhythm with a normal S1 and S2. No gallops, murmurs, or rubs. Normal PMI, no JVD. No pulse deficits. Abdomen/GI: Soft, non-tender, with normal bowel sounds. No distension or tympany. No guarding or rebound. No evidence of tenderness throughout. 14:54 Constitutional: The patient appears alert, awake. 14:54 Respiratory: mild respiratory distress is noted, Respirations: labored breathing, that is mild, Breath sounds: rhonchi, that are moderate, are located in both bases. 14:54 Neuro: Exam negative for acute changes, per halfway staff. Orientation: to person, place \T\ time. Vital Signs: 10:26 BP 136 / 56; Pulse 75; Resp 19; Temp 97.8; Pulse Ox 94% on 4 lpm NC; bp 11:06 BP 118 / 74; Pulse 80; Resp 20; Pulse Ox 100% on Nebulizer Mask; mh5 12:19 BP 124 / 93; Pulse 118; Resp 26; Pulse Ox 91% on 4 lpm NC; mh5 13:30 BP 142 / 60; Pulse 96; Resp 24; Pulse Ox 96% ; bp 14:30 BP 119 / 59; Pulse 94; Resp 24; Pulse Ox 97% ; bp 15:30 BP 101 / 48; Pulse 90; Resp 21; Pulse Ox 95% ; bp 16:29 BP 96 / 52; Pulse 90; Resp 21; Pulse Ox 96% on 2 lpm NC; bp MDM: 10:34 Patient medically screened. kb 14:52 Data reviewed: vital signs, nurses notes. Data interpreted: Pulse oximetry: on room air kb is 91 %. Interpretation: borderline. Counseling: I had a detailed discussion with the patient and/or guardian regarding: the historical points, exam findings, and any diagnostic results supporting the discharge/admit diagnosis, lab results, radiology results, the need for further work-up and treatment in the hospital. 08/22 10:29 Order name: Basic Metabolic Panel kb 08/22 10:29 Order name: CBC with Diff; Complete Time: 12:08 kb 08/22 10:29 Order name: LFT's; Complete Time: 11:36 kb 08/22 10:29 Order name: Magnesium; Complete Time: 11:36 kb 08/22 10:29 Order name: NT PRO-BNP; Complete Time: 11:36 kb 08/22 10:29 Order name: PT-INR; Complete Time: 11:36 kb 08/22 10:29 Order name: Troponin (emerg Dept Use Only); Complete Time: 11:36 kb 08/22 10:30 Order name: Basic Metabolic Panel; Complete Time: 11:36 EDMS 08/22 12:19 Order name: SARS-COV-2 RT PCR; Complete Time: 12:21 EDMS 08/22 13:37 Order name: Lactate kb 08/22 13:37 Order name: Procalcitonin; Complete Time: 16:26 kb 08/22 13:37 Order name: Blood Culture Adult (2) kb 08/22 13:38 Order name: Lactate; Complete Time: 15:22 EDMS 08/22 10:29 Order name: XRAY Chest (1 view); Complete Time: 12:26 kb 08/22 10:29 Order name: EKG; Complete Time: 10:30 kb 08/22 10:29 Order name: Cardiac monitoring; Complete Time: 10:41 kb 08/22 10:29 Order name: EKG - Nurse/Tech; Complete Time: 10:40 kb 08/22 10:29 Order name: IV Saline Lock; Complete Time: 11:10 kb 08/22 10:29 Order name: Labs collected and sent; Complete Time: 11:10 kb 08/22 10:29 Order name: O2 Per Protocol; Complete Time: 11:10 kb 08/22 10:29 Order name: O2 Sat Monitoring; Complete Time: 11:10 kb Administered Medications: 10:45 Drug: AtroVENT Aerosol 0.5 mg Route: Inhalation; bp 10:45 Drug: Xopenex 1.25 mg Route: Inhalation; bp 15:06 Drug: Rocephin 1 grams Route: IV; Rate: calculated rate; Site: right forearm; bp 15:44 Follow up: IV Status: Completed infusion; IV Intake: 100ml bp 15:15 Drug: Zithromax 500 mg Route: IVPB; Infused Over: 1 hrs; Site: right forearm; bp Disposition: 17:21 Co-signature as Attending Physician, Chapo Richardson MD. rn Disposition: 08/22/20 13:31 Hospitalization ordered by Bubba Romero for Observation. Preliminary diagnosis is Pneumonia, unspecified organism. - Bed requested for Telemetry/MedSurg (observation). - Status is Observation. bp - Condition is Stable. - Problem is new. - Symptoms are unchanged. Signatures: Dispatcher [employer] EDOH Michelle Pearl, GLYCERIN OPERATOR-C GLYCERIN OPERATOR-Ckb Chapo Richardson MD MD rn Peltier, Brian, RN RN Rakel Pedro Corrections: (The following items were deleted from the chart) 11:33 10:30 CORONAVIRUS+MR.LAB.BRZ ordered. EDMS EDMS 14:53 14:52 Constitutional: Negative for fever, chills, and weight loss, kb kb 14:53 14:52 Unable to obtain ROS due to baseline dementia, kb kb 15:31 13:31 Hospitalization Ordered by Bubba Romero DO for Observation. Preliminary eb diagnosis is Pneumonia, unspecified organism. Bed requested for Telemetry/MedSurg (observation). Status is Observation. Condition is Stable. Problem is new. Symptoms are unchanged. kb 16:57 15:31 08/22/2020 13:31 Hospitalization Ordered by Bubba Romero DO for Observation. bp Preliminary diagnosis is Pneumonia, unspecified organism. Bed requested for Telemetry/MedSurg (observation). Status is Observation. Condition is Stable. Problem is new. Symptoms are unchanged. eb
[2020-08-22] MEDS ORDERED: NA CHLORIDE 0.9% 100 ML ONE (15:15)
[2020-08-22] MEDS ORDERED: CEFTRIAXONE/SWI 1gm 1 GM/10 ML SYR ONE (15:15)
[2020-08-22] MEDS ORDERED: AZITHROMYCIN IV 500 MG in NA CHLORIDE 0.9% 250 ML IVPB ONE (16:00)
[2020-08-22] MEDS: METHYLPREDNISOLONE 40 MG INJ IV SCH (16:10)
--- NOTE | 2020-08-22 16:41 | P.HP ---
Certification for Inpatient Patient admitted to: Inpatient With expected LOS: >2 Midnights Patient will require the following post-hospital care: Other (Back to group home) Practitioner: I am a practitioner with admitting privileges, knowledge of patient current condition, hospital course, and medical plan of care. Services: Services provided to patient in accordance with Admission requirements found in Title 42 Section 412.3 of the Code of Federal Regulations Patient History Date of Service: 08/22/20 Primary Care Provider: care home provider Reason for admission: Shortness of breath History of Present Illness: 85-year-old female with history of COPD, dementia presented to the emergency room after she was sent from the group home due to soreness of breath. care home reports shortness of breath and low oxygen saturations. Most of the information came from the ER physician. ER reports patient had oxygen saturations below 90% from group home. Patient with dementia not able to give adequate history. In the ER patient was evaluated. Patient required 3 L per nasal cannula. Chest x-ray showed right upper lobe pneumonia. White count 11.5, hemoglobin 11. Sodium 144, potassium 4.3. BUN 35, creatinine 1.2 with a GFR 42. Troponin unremarkable. COVID test negative. Patient was given antibiotic therapy in the emergency room. Patient admitted for further evaluation and treatment. I was able to get in contact with the daughter. Daughter reports patient has been at the group home for quite some time. Patient has multiple medical problems including dementia. Daughter reports patient has declined in health over the past several months. Allergies fructose [From Emetrol] Allergy (Unknown, Verified 03/02/15 13:53) Itching/Hives/Rash dextrose [From Emetrol] Allergy (Verified 03/02/15 13:53) Hives/Rash Fructose [From Emetrol] Allergy (Verified 03/02/15 13:53) Hives/Rash iodine [Iodine] Allergy (Verified 03/02/15 13:53) Hives/Rash phosphoric acid,diluted [From Emetrol] Allergy (Verified 03/02/15 13:53) Hives/Rash sulfamethoxazole [From Bactrim DS] Allergy (Verified 03/02/15 13:53) Hives trimethoprim [From Bactrim DS] Allergy (Verified 03/02/15 13:53) Hives Home Medications: Lisinopril [Zestril] 2.5 mg PO DAILY 01/19/12 Hydrocodone Bit/Acetaminophen [[place] 10-325 Tablet] 1 each PO BID 08/05/12 Calc/D3/Mag/Zn/Rn Rehab/[place] [Calcium 600 mg + Vit D Tab] 1 each PO DAILY 11/18/12 Famotidine [Pepcid*] 20 mg PO DAILY 11/18/12 Mvi/Minerals W/ Vit C & Zinc 1 tab PO DAILY #0 11/25/12 Acetaminophen [Acetaminophen Extra Strength] 500 mg PO Q4HR PRN 01/23/14 Baclofen [Lioresal*] 5 mg PO TID 01/23/14 Fluticasone [Flonase 50MCG Nasal [place]*] 2 sprays NS DAILY 03/02/15 Hypromellose [Artificial Tears] 1 drop OP BID 03/02/15 Levothyroxine [Synthroid*] 150 mcg PO [id number] 03/02/15 Albuterol Sulfate [Proair Hfa] 2 puff IH PRN PRN 12/25/17 Aspirin Chewable [Aspirin Chewable*] 81 mg PO DAILY 12/25/17 Cholestyramine (with Sugar) [Questran Packet] 4 mg PO WMP 12/25/17 Donepezil [Aricept] 10 mg PO BEDTIME 12/25/17 Escitalopram [Lexapro*] 5 mg PO DAILY 12/25/17 Gabapentin [Neurontin] 300 mg PO DAILY 12/25/17 Guaifenesin [Cough Syrup] 10 ml PO TID PRN 12/25/17 Mag Hydroxide 8% [Milk Of Magnesia*] 30 ml PO DAILY PRN 12/25/17 Nitroglycerin [Nitrostat*] 0.4 mg PO PRN PRN 12/25/17 Trazodone [Desyrel*] 75 mg PO BEDTIME 12/25/17 - Past Medical/Surgical History Diabetic: Yes -: Dementia -: COPD -: Depression with anxiety -: GERD -: Neuropathy -: Depression -: Osteoarthritis -: L. mastectomy -: L. mastectomy Psychosocial/ Personal History: care home - Family History Family History: Reviewed- Non-Contributory - Social History Smoking Status: Former smoker Alcohol use: No CD- Drugs: No Caffeine use: Yes Place of [facility] Review of Systems is unable to be obtained Physical Examination - Physical Exam General: Other (Patient with dementia. Slight confusion noted but appropriate for age) HEENT: Atraumatic, Normocephalic, Other (Dry mucous membranes noted) Neck: Supple Respiratory: Crackles/rales (To the base right-sided), Other (Poor inspiration expiration) Cardiovascular: Normal pulses, Regular rate/rhythm Gastrointestinal: Normal bowel sounds, No tenderness, No masses, No rebound, No guarding Musculoskeletal: No tenderness, No warmth Neurological: Normal speech, Normal strength at 5/5 x4 extr, Normal tone, Dementia - Studies Laboratory Data (last 24 hrs) 08/22/20 11:00: PT 11.9, INR 1.03 08/22/20 11:00: WBC 11.50 H, Hgb 11.0 L, Hct 36.7, Plt Count 288 08/22/20 11:00: Sodium 144, Potassium 4.3, BUN 35 H, Creatinine 1.21, Glucose 114 H, Magnesium 2.2, Total Bilirubin 0.4, AST 30, ALT 34, Alkaline Phosphatase 103 Assessment and Plan - Plan Impression: Dyspnea with hypoxia secondary to right upper lobe pneumonia suspect aspiration Dementia COPD Depression with anxiety Acute renal insufficiency likely dehydration Plan: Dyspnea with hypoxia secondary to right upper lobe pneumonia suspect aspiration: Patient will be admitted for further evaluation and treatment. Will start IV Zosyn. Blood, urine cultures obtained. Will also provide IV fluids. Will continue monitor closely. Case discussed with daughter. Advanced directives address in detail. For now patient will be full code. Daughter to speak to family members about patient's worsening decline in health over the past several months. Daughter will reconsider Re addressing advanced directives and considered may be hospice in the future. Will readdress this again tomorrow. Anticipate improvement. Wean off oxygen. Continue DVT prophylaxis. Aspiration precaution in place. Will consult pulmonology who is evaluated patient in the past. Dementia: Continue medication COPD: Will provide COPD medication. Maintain sats above 93%. Depression with anxiety: Continue medication Acute renal insufficiency likely dehydration: Will provide IV fluids. Will monitor closely. Discharge Plan: [facility] Plan to discharge in: Greater than 2 days - Advance Directives Does patient have a Living Will: No Does patient have a Durable POA for Healthcare: No - Code Status/Comfort Care Code Status Assessed: Yes (Patient is full code) Time Spent Managing Pts Care (In Minutes): 55
[2020-08-22 17:10] VITALS: BMI 21.9
[2020-08-22] MEDS: INSULIN -REGULAR HUMAN 50 UNIT/0.5 ML ML SQ SCH ×2 (17:41→21:00)
[2020-08-22] MEDS ORDERED: ACETAMINOPHEN 500 MG TAB PO PRN (17:41)
[2020-08-22] MEDS ORDERED: ONDANSETRON 4 MG/2 ML VIAL IV PRN (17:41)
[2020-08-22] MEDS ORDERED: NA CHLORIDE 0.9% 1,000 ML IV SCH (17:41)
[2020-08-22] MEDS ORDERED: IPRATROPIUM BROM 0.5MG/2.5ML NEB PRN (17:41)
[2020-08-22] MEDS ORDERED: ALBUTEROL 2.5 MG/3 ML NEB SOL NEB PRN (17:41)
[2020-08-22] MEDS ORDERED: ACETAMINOPHEN 650MG/RECT SUPP PR PRN (18:07)
[2020-08-22] MEDS: PIPER/TAZO/NS 3.375gm 3.375 GM/100 ML BAG IVPB SCH (18:42)
[2020-08-22] MEDS: ARFORMOTEROL TARTRATE 15 MCG/2 ML VIAL.NEB NEB SCH (20:05)
[2020-08-22] MEDS: MIRTAZAPINE 15 MG TAB PO SCH (20:35)
[2020-08-22] MEDS: DONEPEZIL HCL 5 MG TAB PO SCH (20:35)
[2020-08-22] MEDS: MEMANTINE HCL 10 MG TABLET PO SCH (20:35)
[2020-08-23] MEDS: PIPER/TAZO/NS 3.375gm 3.375 GM/100 ML BAG IVPB SCH ×2 (02:23→10:44)
[2020-08-23 03:57] LABS: Urine Appearance CLOUDY; Urine Bilirubin NEGATIVE (NEG); Urine Blood 1+ (NEG); Urine Color YELLOW; Urine Glucose NEGATIVE (NEG); Urine Protein TRACE (NEG); Urine Urobilinogen 0.2 mg/dL (0.2-1.0); Urine pH 5.5 (5.0-7.0)
[2020-08-23 04:05] LABS: Urine Microscopic Reflex ORDER UMIC
[2020-08-23 04:33] LABS: Urine Bacteria <20 /HPF (<20)
[2020-08-23 06:00] LABS: Absolute Lymphocytes (CBC) 1.5 K/uL (0.7-4.9); Basophils % 0.3 % (0-1.3); Hematocrit 29.6 % (36.0-45.0); Lymphocytes % 12.4 % (15.3-44.8); MPV 8.6 fL (7.6-11.3); RBC Red Blood Cell Count 3.28 M/uL (3.86-4.86)
[2020-08-23 06:11] LABS: Magnesium 2.1 mg/dL (1.8-2.4); Potassium 3.9 mmol/L (3.5-5.1)
[2020-08-23] MEDS: INSULIN -REGULAR HUMAN 50 UNIT/0.5 ML ML SQ SCH ×4 (07:30→21:00)
[2020-08-23] MEDS: ARFORMOTEROL TARTRATE 15 MCG/2 ML VIAL.NEB NEB SCH ×2 (08:10→20:25)
--- NOTE | 2020-08-23 08:55 | RAD REPORT ---
EXAM DESCRIPTION: RAD - Chest Single View - 08/23/2020 5:36 am CLINICAL HISTORY: Follow-up pneumonia Chest pain. COMPARISON: Chest Single View dated 08/22/2020; Chest Single View dated 05/01/2019; CHEST SINGLE VIEW d ated 03/05/2014; CHEST SINGLE VIEW dated 01/24/2014 FINDINGS: Portable technique limits examination quality. Mild interstitial prominence is present bilaterally, slightly greater on the right and slightly progr essive since the comparative study. The heart is normal in size. Tortuous thoracic aorta. IMPRESSION: Slight worsening in right lung aeration since comparative study.
[2020-08-23] MEDS: MEMANTINE HCL 10 MG TABLET PO SCH ×2 (09:00→21:00)
[2020-08-23] MEDS: FOLIC ACID 1 MG TABLET PO SCH (09:00)
[2020-08-23] MEDS: THIAMINE HCL 100 MG TABLET PO SCH (09:00)
[2020-08-23] MEDS: CYANOCOBALAMIN 1,000 MCG TAB PO SCH (09:00)
[2020-08-23] MEDS: ESCITALOPRAM 20 MG TAB PO SCH (09:00)
[2020-08-23] MEDS ORDERED: predniSONE 10 MG TAB PO SCH (09:00)
[2020-08-23] MEDS: ASPIRIN EC 81 MG TAB PO SCH (09:00)
[2020-08-23] MEDS ORDERED: KCL 20 MEQ/100 mL IVPB 20 MEQ/100 ML BAG IV SCH (09:00)
--- NOTE | 2020-08-23 09:56 | P.PN ---
Subjective Date of Service: 08/23/20 Primary Care Provider: penitentiary provider Chief Complaint: Shortness of breath Subjective: Improving, Demented Physical Examination - Vital Signs Temperature: 97.5 F Blood Pressure: 105/51 Pulse: 63 Respirations: 18 Pulse Ox (%): 100 - Studies Laboratory Data (last 24 hrs) 08/22/20 11:00: PT 11.9, INR 1.03 08/22/20 11:00: WBC 11.50 H, Hgb 11.0 L, Hct 36.7, Plt Count 288 08/22/20 11:00: Sodium 144, Potassium 4.3, BUN 35 H, Creatinine 1.21, Glucose 114 H, Magnesium 2.2, Total Bilirubin 0.4, AST 30, ALT 34, Alkaline Phosphatase 103 Assessment & Plan Discharge Plan: Longterm Plan to discharge in: 72 Hours Physician Review Additional Text: Physical exam: Patient remained stable. Slight improvement in hydration noted. Patient is demented but alert and appropriate. Heart: Regular rate rhythm Lungs: Crackles to the right base. Abdomen: Soft nontender Extremities: Good range of motion Mentation: Appears to be at baseline. Impression: Dyspnea with hypoxia secondary to right upper lobe pneumonia suspect aspiration Dementia COPD Depression with anxiety Acute renal insufficiency likely dehydration Anemia of chronic disease Plan: Dyspnea with hypoxia secondary to right upper lobe pneumonia suspect aspiration: Continue with IV Zosyn. Will adjust IV fluids to half-normal saline. Patient failed swallow screen by nurse yesterday. Patient remains NPO. Await speech evaluation for recommendation. Blood and urine culture obtained. Spoke with daughter yesterday concerning plan of care. Will Re discuss advanced directives with family again today. Daughter reports patient's condition has declined over the past several months. Family would consider possible hospice in the future if this continued to decline. X-ray shows slight worsening to the right lung field. Continue wean off oxygen. Continue DVT prophylaxis. Aspiration precaution in place. Pulmonology consulted. Will continue to monitor the patient closely. Will discuss with family about plan of care and await speech recommendations. Dementia: Continue medication COPD: Continue with COPD medication. Maintain sats above 93%. Depression with anxiety: Continue medication Acute renal insufficiency likely dehydration: Lab shows improvement. Continue IV fluids. Anemia of chronic disease: Will monitor this closely. Will check iron and B12 studies. Anticipate drop in hemoglobin likely dilutional. Maintain hemoglobin above 7.0. Time Spent Managing Pts Care (In Minutes): 55
[2020-08-23] MEDS ORDERED: NACHLORIDE 0.45% 1,000 ML IV SCH (10:00)
[2020-08-23] MEDS: ENOXAPARIN 40 MG/0.4 ML SQ SCH (10:43)
[2020-08-23 12:01] LABS: Ferritin 39.3 ng/mL (8-388)
--- NOTE | 2020-08-23 12:35 | P.CNS ---
Date of Consult: 08/23/20 Primary Care Provider: retirement provider Chief Complaint: Shortness of breath History of Present Illness: Patient is 85 years of age with history of COPD dementia presents to the hospital with worsening dyspnea low oxygen saturation lives in a senior care poor historian chest x-ray shows some interstitial changes right hilar abnormality feeling a little better since admission patient is on trilogy at home Allergies fructose [From Emetrol] Allergy (Unknown, Verified 03/02/15 13:53) Itching/Hives/Rash dextrose [From Emetrol] Allergy (Verified 03/02/15 13:53) Hives/Rash Fructose [From Emetrol] Allergy (Verified 03/02/15 13:53) Hives/Rash iodine [Iodine] Allergy (Verified 03/02/15 13:53) Hives/Rash phosphoric acid,diluted [From Emetrol] Allergy (Verified 03/02/15 13:53) Hives/Rash sulfamethoxazole [From Bactrim DS] Allergy (Verified 03/02/15 13:53) Hives trimethoprim [From Bactrim DS] Allergy (Verified 03/02/15 13:53) Hives Home Medications: Baclofen [Lioresal*] 5 mg PO BID 01/23/14 Hypromellose [Artificial Tears] 1 drop OP BID 03/02/15 Donepezil [Aricept] 10 mg PO BEDTIME 12/25/17 Aspirin [Aspirin EC] 1 tab PO DAILY 08/23/20 Calcium Carb/Vit D3/Minerals [Sm Calcium 600+Minerals Tab] 1 tab PO DAILY 08/23/20 Chlorthalidone 12.5 mg PO DAILY 08/23/20 Cholestyramine (with Sugar) [Questran Packet] 1 packet PO BID 08/23/20 Cranberry Fruit [Cranberry] 1 tab PO DAILY 08/23/20 Cyanocobalamin (Vitamin B-12) [Vitamin B-12] 1 tab PO DAILY 08/23/20 Docusate [Colace Cap*] 1 cap PO DAILY 08/23/20 Escitalopram Oxalate [Lexapro] 1 tab PO DAILY 08/23/20 Ferrous Sulfate [Ferrous Sulfate*] 1 tab PO DAILY 08/23/20 Fluticasone/Umeclidin/Vilanter [Trelegy Ellipta 100-62.5-25] 1 puff IH DAILY 08/23/20 Folic Acid 400 mcg PO DAILY 08/23/20 Gabapentin 2 cap PO TID 08/23/20 Hydrocodone Bit/Acetaminophen [[place] 7.5-325 Tablet] 1 tab PO Q6H 08/23/20 Levothyroxine Sodium [Levothyroxine] 1 tab PO DAILY 08/23/20 Levothyroxine Sodium [Levothyroxine] 1 tab PO DAILY 08/23/20 Memantine HCl [Namenda] 1 tab PO BID 08/23/20 Mirtazapine [Remeron*] 1 tab PO BEDTIME 08/23/20 Multivit with Iron,Minerals [Complete Senior] 1 tab PO DAILY 08/23/20 Trolamine Salicylate/Aloe Vera [Aspercreme 10% Cream] 1 zully TOP BID 08/23/20 - Past Medical/Surgical History Diabetic: Yes -: Dementia -: COPD -: Depression with anxiety -: GERD -: Neuropathy -: Depression -: Osteoarthritis -: L. mastectomy -: L. mastectomy Psychosocial/ Personal History: retirement - Social History Smoking Status: Never smoker Alcohol use: No CD- Drugs: No Caffeine use: No Place of Residence: Group Home Review of Systems 10-point ROS is otherwise unremarkable General: Weakness Respiratory: Shortness of Breath Physical Examination Temp Pulse Resp BP Pulse Ox 97.6 F 65 20 115/54 L 100 08/23/20 12:00 08/23/20 12:00 08/23/20 12:00 08/23/20 12:00 08/23/20 12:00 General: Alert, Oriented x1, Mild distress Respiratory: Diminished, Expiratory wheezes Cardiovascular: No edema, Normal pulses Gastrointestinal: Normal bowel sounds, Soft and benign Musculoskeletal: No clubbing, No contractures - Problems (1) COPD exacerbation Current Visit: Yes Status: Acute Plan: Patient is 85 years of age admitted with COPD exacerbation labs reviewed mildly elevated white count vital signs stable oxygenation satisfactory on 2 L SA has been isolated in the urine in the past including Pseudomonas is no evidence of pneumonia start on IV Solu-Medrol Dc Zosyn check CRP level can change to p.o. Levaquin 500 mg daily for the possibility of an infection right hilum i is abnormal with also wrist CT of the chest without contrast
--- NOTE | 2020-08-23 13:14 | RAD REPORT ---
EXAM DESCRIPTION: CT - Thorax Wo Con - 08/23/2020 1:00 pm CLINICAL HISTORY: Abnormal radiologic exam/shortness of breath COMPARISON: X-rays 2018 and August 23, 2020 TECHNIQUE: Computed axial tomography of the chest was obtained. Contrast was not requested. All CT scans are performed using dose optimization technique as appropriate and may include automated exposure control or mA/KV adjustment according to patient size. FINDINGS: The evaluation of mediastinum, alban and vessels is limited secondary to lack of IV contras t administration. Mild patchy alveolar opacities are present within probably the right upper lobe. Mild atelectasis the lower lobes bilaterally. Calcified mediastinal and calcified hilar lymph nodes are present. A pleural effusion is not present. No pericardial effusion. Coronary arterial calcifications. The aor ta is tortuous/ectatic IMPRESSION: Mild right pneumonia
[2020-08-23] MEDS: Levofloxacin500mg IV 500 MG/100 ML BAG IV SCH (16:10)
[2020-08-23] MEDS ORDERED: POTASSIUM 25 MEQ EFFERV TAB PO ONE ×2 (16:21→17:00)
[2020-08-23] MEDS: ENSURE ENLIVE 237 ML CAN PO SCH (21:00)
[2020-08-23] MEDS: POLYVINYL ALCOHOL 1.4% 15 ML OPTH SCH (21:00)
[2020-08-23] MEDS: DONEPEZIL HCL 5 MG TAB PO SCH (21:00)
[2020-08-23] MEDS: METHYLPREDNISOLONE 40 MG INJ IV SCH (21:00)
[2020-08-23] MEDS: MIRTAZAPINE 15 MG TAB PO SCH (21:02)
--- NOTE | 2020-08-23 22:29 | EKG ---
Test Date: 2020-08-22 Test Time: 10:41:43 Senior Ui Designer: YU MEASUREMENT RESULTS: Intervals: Rate: 77 KS: 154 QRSD: 74 QT: 392 QTc: 443 [place]: P: 116 KS: 154 QRS: 82 T: 118 INTERPRETIVE STATEMENTS: Normal sinus rhythm ST & T wave abnormality, consider anterolateral ischemia Abnormal ECG Compared to ECG 01/23/2014 07:36:14 ST (T wave) deviation now present Possible ischemia now present Electronically Signed On 08-23-20 22:25:44 [employer] by Fabricio Matthew
[2020-08-24] MEDS ORDERED: LEVOTHYROXINE SOD 0.125 MG TAB PO SCH (06:30)
[2020-08-24 06:36] LABS: Magnesium 1.9 mg/dL (1.8-2.4); Potassium 4.9 mmol/L (3.5-5.1)
[2020-08-24 07:00] LABS: Absolute Lymphocytes (CBC) 1.2 K/uL (0.7-4.9); Basophils % 0.3 % (0-1.3); Hematocrit 27.8 % (36.0-45.0); Lymphocytes % 11.1 % (15.3-44.8); MPV 8.8 fL (7.6-11.3)
[2020-08-24 07:26] LABS: Platelet Estimate ADEQ; White Blood Cell Scan OK (OK)
[2020-08-24 07:27] LABS: Anisocytosis 1+; Blood Morphology Comment NOTED (NOT SEEN)
[2020-08-24] MEDS: INSULIN -REGULAR HUMAN 50 UNIT/0.5 ML ML SQ SCH ×2 (07:30→11:30)
[2020-08-24] MEDS: ARFORMOTEROL TARTRATE 15 MCG/2 ML VIAL.NEB NEB SCH (08:31)
[2020-08-24] MEDS: THIAMINE HCL 100 MG TABLET PO SCH (08:34)
[2020-08-24] MEDS: ASPIRIN EC 81 MG TAB PO SCH (08:34)
[2020-08-24] MEDS: ESCITALOPRAM 20 MG TAB PO SCH (08:35)
[2020-08-24] MEDS: CYANOCOBALAMIN 1,000 MCG TAB PO SCH (08:35)
[2020-08-24] MEDS: FOLIC ACID 1 MG TABLET PO SCH (08:35)
[2020-08-24] MEDS: MEMANTINE HCL 10 MG TABLET PO SCH (08:35)
[2020-08-24] MEDS: ENSURE ENLIVE 237 ML CAN PO SCH (08:36)
[2020-08-24] MEDS: POLYVINYL ALCOHOL 1.4% 15 ML OPTH SCH (08:36)
[2020-08-24] MEDS: ENOXAPARIN 40 MG/0.4 ML SQ SCH (08:37)
[2020-08-24] MEDS ORDERED: HOME MED 1 EA UNK (Levothyroxine Sodium [Levothyroxine] 200 MCG Capsule) PO SCH (09:00)
[2020-08-24] MEDS ORDERED: HOME MED 1 EA UNK (Levothyroxine Sodium [Levothyroxine] 50 MCG Capsule) PO SCH (09:00)
[2020-08-24] MEDS ORDERED: DOCUSATE NA 100 MG CAP PO SCH (09:00)
--- NOTE | 2020-08-24 11:07 | P.DS ---
Admission Date: 08/22/20 Discharge Date: 08/24/20 Primary Care Provider: [facility] provider Disposition: TRANSFER TO ALF Discharge Condition: GOOD Reason for Admission: Shortness of breath Consultations: Pulmonary-Dr. Powell Procedures: COVID: negative CT chest: FINDINGS: The evaluation of mediastinum, alban and vessels is limited secondary to lack of IV contrast administration. Mild patchy alveolar opacities are present within probably the right upper lobe. Mild atelectasis the lower lobes bilaterally. Calcified mediastinal and calcified hilar lymph nodes are present. A pleural effusion is not present. No pericardial effusion. Coronary arterial calcifications. The aorta is tortuous/ectatic IMPRESSION: Mild right pneumonia Medical Problem list: Dyspnea with hypoxia secondary to right upper lobe pneumonia, aspiration complicated with COPD exacerbation Dementia Depression with anxiety Acute renal insufficiency likely dehydration Anemia of chronic disease Hypertension Hypothyroidism Chronic pain Brief History of Present Illness: 85-year-old female with history of COPD, dementia presented to the emergency room after she was sent from the detention due to soreness of breath. [facility] reports shortness of breath and low oxygen saturations. Most of the information came from the ER physician. ER reports patient had oxygen saturations below 90% from detention. Patient with dementia not able to give adequate history. In the ER patient was evaluated. Patient required 3 L per nasal cannula. Chest x-ray showed right upper lobe pneumonia. White count 11.5, hemoglobin 11. Sodium 144, potassium 4.3. BUN 35, creatinine 1.2 with a GFR 42. Troponin unremarkable. COVID test negative. Patient was given antibiotic therapy in the emergency room. Patient admitted for further evaluation and treatment. I was able to get in contact with the daughter. Daughter reports patient has been at the detention for quite some time. Patient has multiple medical problems including dementia. Daughter reports patient has declined in health over the past several months. Hospital Course: Patient presented Dyspnea with hypoxia secondary to right upper lobe aspiration pneumonia complicated with COPD exacerbation. The patient was admitted for treatment. Patient was seen and evaluated by pulmonology. Her condition improved with IV antibiotic therapy and steroids. At discharge patient without significant chest pain, shortness of breath. Patient has done well. No further intervention required. At discharge patient will continue with Levaquin 500 mg daily for 5 more days to cover for the pneumonia. Aspiration precaution will need to be enforced at the detention. For her COPD the patient will continue with prednisone 10 mg 1 pill twice daily for 7 days then 1 pill once daily for 7 days. The patient will continue with her current medication of Trelegy 1 puff daily. The patient will also be provided a prescription for Albuterol and Atrovent nebs 1 unit dose 3 times a day as needed for shortness of breath. At this time patient does not require oxygen. This will be verified. If so patient may continue with oxygen to maintain sats above 93%. Patient recently on 2 L per nasal cannula. At discharge she will return to the detention. Recommend to recheck chest x-ray in 2-4 weeks to monitor resolution. Recommend follow up with pulmonology in 1-2 weeks to follow up this hospitalization. Patient also had acute renal insufficiency likely from dehydration and medication-chlorthalidone. Patient was given IV fluids with improvement. Patient does take chlorthalidone at the detention for hypertension. This was discontinued due to her dehydration status. Renal function back to baseline. Patient with underlying hypertension. At discharge will recommend to di scontinue chlorthalidone. Will recommend to start Norvasc 5 mg daily for Hypertension in replacement. Recommend to monitor blood pressure daily. Recommend to maintain blood pressure less than 130/80. Further adjustment can be done by the detention physician. Recommend to recheck lab-BMP in 1 week to monitor. Patient with dementia. This appears stable. Advanced care planning address in detail with family-30 min. Patient is do not resuscitate. Patient has been declining in health over the past several months. Family will consider hospice in the future. This can be further addressed at the detention. At discharge she will continue with her current medications of Aricept 10 mg daily and Namenda 10 mg 1 pill twice daily. Patient with depression and anxiety. At discharge patient may continue with Lexapro 10 mg daily. Patient also takes mirtazapine 15 mg at bedtime. May need to hold this if with increase sedation. Further adjustment and monitoring can be done by detention physician. Patient with anemia of chronic disease. This appears stable. At discharge she may continue with iron supplementation daily, folic acid 1 mg daily, and multi vitamin daily. Recommend to recheck CBC in 2-4 weeks to monitor stability. Patient with chronic pain. Medications reviewed in detail. Will recommend to discontinue baclofen as this was not required during her hospitalization. Patient may continue with gabapentin 200 mg 3 times a day and hydrocodone every 6 hr as needed for pain. Recommend to hold pain medication if with increase sedation. Recommend to wean off hydrocodone. This can be done with the help of her detention provider. Patient with hypothyroidism. At discharge she will continue with levothyroxine 250 mcg daily. Recommend to recheck tsh and free T4 in 4-6 weeks to monitor her progress. Patient will continue her other medications including docusate 100 mg daily, aspirin 81 mg daily, Caltrate daily, cranberry daily, and vitamin B12 supplemen tation. Patient also takes cholestyramine twice a day as directed. Vital Signs/Physical Exam: Temp Pulse Resp BP Pulse Ox 97.8 F 72 19 162/73 H 98 08/24/20 08:00 08/24/20 08:00 08/24/20 08:00 08/24/20 08:00 08/24/20 08:00 General: Alert, In no apparent distress, Oriented x2, Cooperative, Demented (Mild) HEENT: Atraumatic Neck: Supple Respiratory: Clear to auscultation bilaterally Cardiovascular: Normal pulses, Regular rate/rhythm Gastrointestinal: Normal bowel sounds, Soft and benign, Non-distended, No masses, No rebound, No guarding Neurological: Normal speech, Normal tone, Normal affect Laboratory Data at Discharge: WBC 10.60 K/uL (4.3-10.9) 08/24/20 06:45 Hgb 8.9 g/dL (12.0-15.0) L 08/24/20 06:45 Hct 27.8 % (36.0-45.0) L 08/24/20 06:45 Plt Count 230 K/uL (152-406) 08/24/20 06:45 PT 11.9 SECONDS (9.5-12.5) 08/22/20 11:00 INR 1.03 08/22/20 11:00 Sodium 145 mmol/L (136-145) 08/24/20 05:23 Potassium 4.9 mmol/L (3.5-5.1) 08/24/20 05:23 BUN 28 mg/dL (7-18) H 08/24/20 05:23 Creatinine 0.93 mg/dL (0.55-1.3) 08/24/20 05:23 Glucose 155 mg/dL (74-106) H 08/24/20 05:23 Magnesium 1.9 mg/dL (1.8-2.4) 08/24/20 05:23 Total Bilirubin 0.4 mg/dL (0.2-1.0) 08/22/20 11:00 AST 30 U/L (15-37) 08/22/20 11:00 ALT 34 U/L (12-78) 08/22/20 11:00 Alkaline Phosphatase 103 U/L (45-117) 08/22/20 11:00 Home Medications: Hypromellose [Artificial Tears] 1 drop OP BID 03/02/15 Donepezil [Aricept*] 10 mg PO BEDTIME 12/25/17 Aspirin [Aspirin EC] 1 tab PO DAILY 08/23/20 Calcium Carb/Vit D3/Minerals [Sm Calcium 600+Minerals Tab] 1 tab PO DAILY 08/23/20 Cholestyramine (with Sugar) [Questran Packet] 1 packet PO BID 08/23/20 Cranberry Fruit [Cranberry] 1 tab PO DAILY 08/23/20 Cyanocobalamin (Vitamin B-12) [Vitamin B-12] 1 tab PO DAILY 08/23/20 Docusate [Colace Cap*] 1 cap PO DAILY 08/23/20 Escitalopram Oxalate [Lexapro] 1 tab PO DAILY 08/23/20 Ferrous Sulfate [Ferrous Sulfate*] 1 tab PO DAILY 08/23/20 Fluticasone/Umeclidin/Vilanter [Trelegy Ellipta 100-62.5-25] 1 puff IH DAILY 08/23/20 Gabapentin 2 cap PO TID 08/23/20 Hydrocodone Bit/Acetaminophen [[place] 7.5-325 Tablet] 1 tab PO Q6H 08/23/20 Levothyroxine Sodium [Levothyroxine] 1 tab PO DAILY 08/23/20 Levothyroxine Sodium [Levothyroxine] 1 tab PO DAILY 08/23/20 Memantine HCl [Namenda] 1 tab PO BID 08/23/20 Mirtazapine [Remeron*] 1 tab PO BEDTIME 08/23/20 Multivit with Iron,Minerals [Complete Senior] 1 tab PO DAILY 08/23/20 Trolamine Salicylate/Aloe Vera [Aspercreme 10% Cream] 1 zully TOP BID 08/23/20 Albuterol Neb [Proventil 0.083% Neb Soln] 3 ml NEB TID PRN #90 amp 08/24/20 Amlodipine [Norvasc] 5 mg PO DAILY #30 tab 08/24/20 Folic Acid 1 mg PO DAILY #90 tablet 08/24/20 Ipratropium Neb [Atrovent*] 2.5 ml NEB TID PRN #90 amp 08/24/20 Levofloxacin [Levaquin] 500 mg PO DAILY #5 tablet 08/24/20 predniSONE [Deltasone*] 10 mg PO SEECOM #21 tab 08/24/20 New Medications: Ipratropium Neb [Atrovent*] 2.5 ml NEB TID PRN #90 amp PRN Reason: Shortness Of Breath predniSONE [Deltasone*] 10 mg PO SEECOM #21 tab Folic Acid 1 mg PO DAILY #90 tablet Levofloxacin [Levaquin] 500 mg PO DAILY #5 tablet Amlodipine [Norvasc] 5 mg PO DAILY #30 tab Albuterol Neb [Proventil 0.083% Neb Soln] 3 ml NEB TID PRN #90 amp PRN Reason: Shortness Of Breath Physician Discharge Instructions: Patient presented Dyspnea with hypoxia secondary to right upper lobe aspiration pneumonia complicated with COPD exacerbation. The patient was admitted for treatment. Patient was seen and evaluated by pulmonology. Her condition improved with IV antibiotic therapy and steroids. At discharge patient without significant chest pain, shortness of breath. Patient has done well. No further intervention required. At discharge patient will continue with Levaquin 500 mg daily for 5 more days to cover for the pneumonia. Aspiration precaution will need to be enforced at the detention. For her COPD the patient will continue with prednisone 10 mg 1 pill twice daily for 7 days then 1 pill once daily for 7 days. The patient will continue with her current medication of Trelegy 1 puff daily. The patient will also be provided a prescription for Albuterol and Atrovent nebs 1 unit dose 3 times a day as needed for shortness of breath. At this time patient does not require oxygen. This will be verified. If so patient may continue with oxygen to maintain sats above 93%. Patient recently on 2 L per nasal cannula. At discharge she will return to the detention. Recommend to recheck chest x-ray in 2-4 weeks to monitor resolution. Recommend follow up with pulmonology in 1-2 weeks to follow up this hospitalization. Patient also had acute renal insufficiency likely from dehydration and medication-chlorthalidone. Patient was given IV fluids with improvement. Patient does take chlorthalidone at the detention for hypertension. This was discontinued due to her dehydration status. Renal function back to baseline. Patient with underlying hypertension. At discharge will recommend to discontinue chlorthalidone. Will recommend to start Norvasc 5 mg daily for Hypertension in replacement. Recommend to monitor blood pressure daily. Recommend to maintain blood pressure less than 130/80. Further adjustment can be done by the detention physician. Recommend to recheck lab-BMP in 1 week to monitor. Patient with dementia. This appears stable. Advanced care planning address in detail with family-30 min. Patient is do not resuscitate. Patient has been declining in health over the past several months. Family will consider hospice in the future. This can be further addressed at the detention. At discharge she will continue with her current medications of Aricept 10 mg daily and Namenda 10 mg 1 pill twice daily. Patient with depression and anxiety. At discharge patient may continue with Lexapro 10 mg daily. Patient also takes mirtazapine 15 mg at bedtime. May need to hold this if with increase sedation. Further adjustment and monitoring can be done by detention physician. Patient with anemia of chronic disease. This appears stable. At discharge she may continue with iron supplementation daily, folic acid 1 mg daily, and multi vitamin daily. Recommend to recheck CBC in 2-4 weeks to monitor stability. Patient with chronic pain. Medications reviewed in detail. Will recommend to discontinue baclofen as this was not required during her hospitalization. Patient may continue with gabapentin 200 mg 3 times a day and hydrocodone every 6 hr as needed for pain. Recommend to hold pain medication if with increase sedation. Recommend to wean off hydrocodone. This can be done with the help of her detention provider. Patient with hypothyroidism. At discharge she will continue with levothyroxine 250 mcg daily. Recommend to recheck tsh and free T4 in 4-6 weeks to monitor her progress. Patient will continue her other medications including docusate 100 mg daily, aspirin 81 mg daily, Caltrate daily, cranberry daily, and vitamin B12 supplementation. Patient also takes cholestyramine twice a day as directed. Diet: AHA Activity: Fall precautions Followup: Unknown,U [Primary Care Provider] - Time spent managing pt's care (in minutes): 55
[2020-08-24] MEDS: Levofloxacin500mg IV 500 MG/100 ML BAG IV SCH (12:06)
[2020-08-24 12:58] VITALS: BP 133/60; TEMP 98.4
[2020-08-24 15:05] VITALS: O2SAT 95
== END 2020-08-24 15:08 | DRG 178 ==
LOC: ER 10:20 → ERHOLD 14:22 → 2ND 16:31
PROVIDERS: ADMIT Family Medicine; ATTEND Family Medicine
DX: J69.0 Pneumonitis due to inhalation of food and vomit (principal); J44.1 Chronic obstructive pulmonary disease with (acute) exacerbation; E11.9 Type 2 diabetes mellitus without complications; K21.9 Gastro-esophageal reflux disease without esophagitis; E86.0 Dehydration; N28.9 Disorder of kidney and ureter, unspecified; G89.29 Other chronic pain; E03.9 Hypothyroidism, unspecified; D63.8 Anemia in other chronic diseases classified elsewhere; F41.8 Other specified anxiety disorders; F03.90 Unspecified dementia, unspecified severity, without behavioral disturbance, psychotic disturbance, mood disturbance, and anxiety; I10 Essential (primary) hypertension; Z88.1 Allergy status to other antibiotic agents; Z88.8 Allergy status to other drugs, medicaments and biological substances; Z86.73 Personal history of transient ischemic attack (TIA), and cerebral infarction without residual deficits; Z79.890 Hormone replacement therapy; Z79.82 Long term (current) use of aspirin; Z79.899 Other long term (current) drug therapy; Z79.52 Long term (current) use of systemic steroids; Z90.12 Acquired absence of left breast and nipple; Z87.891 Personal history of nicotine dependence; Z66 Do not resuscitate; Z20.822 Contact with and (suspected) exposure to COVID-19
CPT/HCPCS: 36415; 71045; 71250; 80048; 80076; 81003; 81015; 82607; 82728; 82947; 83540; 83605; 83735; 83880; 84145; 84466; 84484; 85025; 85610; 86140; 87040; 87077; 87086; 87088; 87186; 92610; 93005; 94640; 96365; 96375; 97161; 99285; J0456; J0696; J1650; J2543; J2920; J3480; J7030; J7050; J7605; U0003

== ENCOUNTER 2020-09-28 20:05 | Emergency (ER) | payer OTHER ==
--- OUTSIDE RECORDS SUMMARY | 2020-09-28 20:07 | XMS REPORT | Continuity of Care Document ---
:1935 Author Organization [facility] t Address [address] [place] [address] Care Team Providers Name Role Phone Doctor Unassigned, Name Attending Clinician Unavailable Kailey Woodson MD Attending Clinician Problems This patient has no known problems. Allergies, Adverse Reactions, Alerts This patient has no known allergies or adverse reactions. Medications This patient has no known medications. Procedures This patient has no known procedures. Encounters Start End Encounter Admission Attending Care Care Encounter Source Date/Time Date/Time Type Type Clinicians Facility Department ID 2020-05-15 2020-05-15 Orders Doctor ABDIEL [id number] 00:00:00 00:00:00 Only Unassigned, DAILY [id number] [place] [facility] [id number] 2019-06-21 2019-06-21 Office LEANNE Woodson [id number] 15:45:52 16:00:52 Visit [facility] [id number] Surgical [id number] Specialti [id number] [address] [place] Results This patient has no known results.
--- NOTE | 2020-09-28 21:11 | RAD REPORT ---
EXAM DESCRIPTION: CT - Head Brain Wo Cont - 09/28/2020 8:47 pm CLINICAL HISTORY: head injury Trauma, head injury COMPARISON: HEAD BRAIN W O CONTRAST dated 01/23/2014; HEAD BRAIN W O CONTRAST dated 08/04/2012 TECHNIQUE: All CT scans are performed using dose optimization technique as appropriate and may inclu de automated exposure control or mA/KV adjustment according to patient size. FINDINGS: No intracranial hemorrhage, hydrocephalus or extra-axial fluid collection.Moderate general ized brain atrophy is present with mild periventricular and deep white matter chronic microvascular i schemic changes.No areas of brain edema or evidence of midline shift. The paranasal sinuses and mastoids are clear. The calvarium is intact. IMPRESSION: No acute intracranial abnormality.
--- NOTE | 2020-09-28 21:18 | EDPHYS ---
Physician Documentation [facility] Name: Ritika Madrigal Age: 85 yrs Sex: Female : 1935 Arrival Date: 09/28/2020 Time: 20:12 Bed 8 Private MD: ED Physician Hank Meek HPI: 09/28 20:15 This 85 yrs old Female presents to ER via EMS with complaints of Headache. jmm 20:15 The patient complains of pain to the forehead. Onset: The symptoms/episode jmm began/occurred acutely, at 17:00. Associated signs and symptoms: Pertinent positives: headache, Pertinent negatives: altered mental status, Photophobia vision changes, vomiting. Patient hit her head against a loren lift around 5 pm. Denies vomiting, seizure like activity, behavior change. . Historical: - Allergies: 20:16 Bactrim; rr5 20:16 Iodine; rr5 - PMHx: 20:16 Anemia; Anxiety; chronic bronchitis; Chronic pain; COPD; CVA; Dementia; Depression; rr5 Hypertension; Hypothyroidism; neuropathy; Pneumonia; Renal Disease; Osteoporosis; - Immunization history:: Adult Immunizations unknown. - Social history:: Smoking status: unknown. ROS: 20:15 Constitutional: Negative for fever, chills, and weight loss, Cardiovascular: Negative jmm for chest pain, palpitations, and edema, Respiratory: Negative for shortness of breath, cough, wheezing, and pleuritic chest pain. 20:15 Neuro: Positive for headache. 20:15 All other systems are negative. Exam: 20:15 Constitutional: This is a well developed, well nourished patient who is awake, alert, jmm and in no acute distress. Head/Face: atraumatic. Eyes: EOMI, no conjunctival erythema appreciated ENT: Moist Mucus Membranes Neck: Trachea midline, Supple Chest/axilla: Normal chest wall appearance and motion. Cardiovascular: Regular rate and rhythm. No edema appreciated Respiratory: Normal respirations, no respiratory distress appreciated Abdomen/GI: Non distended, soft Back: Normal ROM 20:15 Skin: small abrasion noted to the forehead. 20:15 Neuro: Orientation: is normal, Mentation: is normal, Memory: is normal. 20:15 Psych: Behavior/mood is pleasant, cooperative. Vital Signs: 20:13 BP 108 / 55; Pulse 80; Resp 19; Temp 98.2; Pulse Ox 90% ; Weight 50 kg; Pain 0/10; rr5 21:32 BP 110 / 62; Pulse 85; Resp 15; Pulse Ox 92% ; rr5 22:12 BP 116 / 62; Pulse 80; Resp 17; Pulse Ox 91% ; rr5 MDM: 20:15 Patient medically screened. [facility] 21:17 Data reviewed: vital signs, nurses notes. Counseling: I had a detailed discussion with [facility] the patient and/or guardian regarding: the historical points, exam findings, and any diagnostic results supporting the discharge/admit diagnosis, radiology results, the need for outpatient follow up, to return to the emergency department if symptoms worsen or persist or if there are any questions or concerns that arise at home. 09/28 20:16 Order name: CT Head Brain wo Cont [facility] 09/28 21:12 Order name: CT; Complete Time: 21:14 EDMS Administered Medications: No medications were administered Disposition: 09/28/20 21:17 Discharged to Home. Impression: Superficial injury of unspecified part of head. - Condition is Stable. - Discharge Instructions: Head Injury, Adult. - Medication Reconciliation Form, Thank You Letter, Antibiotic Education, Prescription Opioid Use form. - Follow up: Private Physician; When: 2 - 3 days; Reason: Recheck today's complaints, Continuance of care, Re-evaluation by your physician. Addendum: 10/01/2020 19:06 Co-signature as Attending Physician, Hank Meek MD. m a2 Signatures: Dispatcher [employer] EDMS Migel Argueta PA PA jmm Alzahri, Mohammad, MD MD ma2 Brent Lipscomb, RN RN rr5 Corrections: (The following items were deleted from the chart) 09/28 22:13 21:17 09/28/2020 21:17 Discharged to Home. Impression: Superficial injury of rr5 unspecified part of head. Condition is Stable. Forms are Medication Reconciliation Form, Thank You Letter, Antibiotic Education, Prescription Opioid Use. Follow up: Private Physician; When: 2 - 3 days; Reason: Recheck today's complaints, Continuance of care, Re-evaluation by your physician. [facility]
--- NOTE | 2020-09-28 21:18 | ER ---
Nurse's Notes [facility] Name: Ritika Madrigal Age: 85 yrs Sex: Female : 1935 Arrival Date: 09/28/2020 Time: 20:12 Bed 8 Private MD: Diagnosis: Superficial injury of unspecified part of head Presentation: 09/28 20:13 Chief complaint: EMS states: from [facility] they were transferring the patient rr5 using a [employer] counterperson she bumped her left eye into it at around 5 PM and she then she complaint of headache. Coronavirus screen: Client denies travel out of the [place] in the last 14 days. At this time, the client does not indicate any symptoms associated with coronavirus-19. Ebola Screen: Patient negative for fever greater than or equal to 101.5 degrees Fahrenheit, and additional compatible Ebola Virus Disease symptoms Patient denies exposure to infectious person. Patient denies travel to an Ebola-affected area in the 21 days before illness onset. Initial Sepsis Screen: Does the patient meet any 2 criteria? No. Patient's initial sepsis screen is negative. Does the patient have a suspected source of infection? No. Patient's initial sepsis screen is negative. Risk Assessment: Do you want to hurt yourself or someone else? Patient reports no desire to harm self or others. Onset of symptoms was September 28, 2020. 20:13 Method Of Arrival: EMS: [facility] rr5 20:13 Acuity: SOURAV 3 rr5 20:13 Transition of care: patient was received from another setting of care (long-term care rr5 facility), [facility]. Historical: - Allergies: 20:16 Bactrim; rr5 20:16 Iodine; rr5 - PMHx: 20:16 Anemia; Anxiety; chronic bronchitis; Chronic pain; COPD; CVA; Dementia; Depression; rr5 Hypertension; Hypothyroidism; neuropathy; Pneumonia; Renal Disease; Osteoporosis; - Immunization history:: Adult Immunizations unknown. - Social history:: Smoking status: unknown. Screenin:17 Abuse screen: Denies threats or abuse. Denies injuries from another. Nutritional rr5 screening: No deficits noted. Tuberculosis screening: No symptoms or risk factors identified. Fall Risk Secondary diagnosis (15 points) impaired mobility, CVA, Ambulatory Aid- None/Bed Rest/Nurse Assist (0 pts). Gait- Impaired (20 pts.). Total Noble Fall Scale indicates High Risk Score (45 or more points). Fall prevention measures have been instituted. Side Rails Up X 2 Placed Close to Nursing Station Frequent Obs/Assessments Occuring As available patient and family educated on Fall Prevention Program and Strategies. Assessment: 20:18 General: Appears in no apparent distress. comfortable, Behavior is calm, cooperative. rr5 Pain: Denies pain. Neuro: Level of Consciousness is awake, alert. Cardiovascular: Capillary refill < 3 seconds Patient's skin is warm and dry. Respiratory: Airway is patent Respiratory effort is even, unlabored, Respiratory pattern is regular, symmetrical. GI: No signs and/or symptoms were reported involving the gastrointestinal system. : No signs and/or symptoms were reported regarding the genitourinary system. EENT: No signs and/or symptoms were reported regarding the EENT system. Derm: Skin is fragile, is thin, Skin temperature is warm. Musculoskeletal: Capillary refill < 3 seconds. 21:32 Reassessment: Patient appears in no apparent distress at this time. Patient is alert, rr5 oriented x 3, equal unlabored respirations, skin warm/dry/pink. for discharge awaiting for EMS transport. 22:12 Reassessment: Patient appears in no apparent distress at this time. [facility] alert no complaints made V/S stable. Vital Signs: 20:13 BP 108 / 55; Pulse 80; Resp 19; Temp 98.2; Pulse Ox 90% ; Weight 50 kg; Pain 0/10; rr5 21:32 BP 110 / 62; Pulse 85; Resp 15; Pulse Ox 92% ; rr5 22:12 BP 116 / 62; Pulse 80; Resp 17; Pulse Ox 91% ; rr5 ED Course: 20:12 Patient arrived in ED. bp1 20:12 Brent Lipscomb, SOHAM is Primary Nurse. rr5 20:13 Migel Argueta PA is PHCP. jmm 20:13 Hank Meek MD is Attending Physician. jmm 20:15 Triage completed. rr5 20:17 Arm band placed on right wrist. rr5 20:17 Patient has correct armband on for positive identification. Bed in low position. Call rr5 light in reach. Side rails up X2. Pulse ox on. NIBP on. 21:32 No provider procedures requiring assistance completed. Patient did not have IV access rr5 during this emergency room visit. Administered Medications: No medications were administered Outcome: 21:17 Discharge ordered by . raza 22:11 Discharged to custodial. Report called to [facility] Transfer form completed. rr5 22:11 Condition: stable 22:11 Discharge instructions given to EMS, Instructed on discharge instructions, follow up and referral plans. Demonstrated understanding of instructions, follow-up care. 22:13 Patient left the ED. rr5 Signatures: Migel Argueta PA PA jmm Roque, Raymond, RN RN rr5 Sheila Martinez bp1
[2020-09-29 08:40] VITALS: TEMP 98.2
[2020-09-29 08:43] VITALS: BP 116/62; O2SAT 91
== END 2020-09-28 22:13 | disposition home or self-care (01) ==
LOC: ER 20:05
DX: S00.81XA Abrasion of other part of head, initial encounter (principal); W22.8XXA Striking against or struck by other objects, initial encounter; Y93.9 Activity, unspecified; Y92.9 Unspecified place or not applicable; Z88.1 Allergy status to other antibiotic agents; Z91.048 Other nonmedicinal substance allergy status; I10 Essential (primary) hypertension
CPT/HCPCS: 70450; 99283